=== PATIENT | female | born 1960 | race Caucasian/White ===

== ENCOUNTER 2018-08-10 13:31 | Emergency (ER) | payer SELFPAY, MEDICAID | END 2018-08-10 14:30 | disposition left against medical advice (07) | LOC: E/R 14:30 | DX: Z53.21 Procedure and treatment not carried out due to patient leaving prior to being seen by health care provider (principal) | CPT/HCPCS: 93005 ==

== ENCOUNTER 2019-04-20 21:55 | Emergency (ER) | payer SELFPAY, MEDICAID ==
[2019-04-20] MEDS: KETOROLAC 30 MG INJ IM (23:44)
== END 2019-04-21 01:41 | disposition home or self-care (01) ==
LOC: FTE 04-21 01:41
DX: S13.4XXA Sprain of ligaments of cervical spine, initial encounter (principal); S40.012A Contusion of left shoulder, initial encounter; V49.40XA Driver injured in collision with unspecified motor vehicles in traffic accident, initial encounter
CPT/HCPCS: 72040; 73030; 96372; 99284-25